=== PATIENT | male | born 1960 | race Two or more races ===

== ENCOUNTER → 2025-05-25 | Outpatient (CLI) | payer MEDICAID, SELFPAY ==
--- NOTE | 2025-05-25 09:33 | XR_ITS ---
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
== END | disposition home or self-care (01) ==
DX: M25.562 Pain in left knee (principal); M25.861 Other specified joint disorders, right knee; M17.11 Unilateral primary osteoarthritis, right knee
CPT/HCPCS: 73562

== ENCOUNTER → 2025-07-09 | Outpatient (CLI) | payer MEDICAID, SELFPAY ==
--- NOTE | 2025-07-09 14:30 | XR_ITS ---
Examination: Abdomen sonogram, Limited Date and time of exam: July 09, 2025, 1437 hours INDICATIONS: Umbilical hernia and pain 8 months Technique: Real-time grace scale transabdominal sonographic images of the upper abdomen obtained. Findings: Umbilical hernia 2.3 x 2.1 cm with possible edema IMPRESSION: Umbilical hernia 2.3 x 2.1 cm with possible edema which may represent incarcerated fat, consider CT scan abdomen without contrast follow-up
== END | disposition home or self-care (01) ==
DX: K42.9 Umbilical hernia without obstruction or gangrene (principal)
CPT/HCPCS: 76705

== ENCOUNTER 2025-09-28 09:15 | Day surgery (SDC) | payer MEDICAID, SELFPAY ==
--- NOTE | 2025-09-27 07:00 | EKG_ITS ---
[facility] Test Date: 2025-09-27 Pat Name: LISA CHANEY Department: Room: - Gender: Male Adult Care Manager: ELIUD : 1960 Requested By: Lul Plaza Order Number: [id number] Reading MD: Lul Plaza Measurements Intervals [place] Rate: 64 P: 44 TX: 190 QRS: 69 QRSD: 85 T: 58 QT: 363 QTc: 377 Interpretive Statements SINUS RHYTHM No previous ECG available for comparison /store/S0/[id number]/[id number].pdf
[2025-09-27 09:56] VITALS: BMI 36.5
[2025-09-27 11:42] LABS: Basophils # (Auto) 0.0 Thou/mm3 (0.0-0.2); Basophils % (Auto) 1 % (0-2.5); Eosinophils # (Auto) 0.2 Thou/mm3 (0.0-0.5); Eosinophils % (Auto) 3 % (0-10); Hematocrit 40.5 % (41.0-53.0); Hemoglobin 13.9 g/dL (13.5-16.0); Immature Granulocytes Auto 0.02 Thou/mm3 (0.00-0.00); Lymphocytes # (Auto) 1.2 Thou/mm3 (1.0-4.8); Lymphocytes % (Auto) 20 % (10-50); Mean Corpuscular HGB Conc 34.3 g/dl (31.0-37.0); Mean Corpuscular Hemoglobin 28.0 pg (25.0-35.0); Mean Corpuscular Volume 82 fL (80-100); Monocytes # (Auto) 0.6 Thou/mm3 (0.0-0.8); Monocytes % (Auto) 9 % (0-12); Neutrophils # (Auto) 4.0 Thou/mm3 (1.8-7.7); Neutrophils % (Auto) 66 % (37-80); Nucleated Red Blood Cell # 0.00 Thou/mm3 (0.00-0.00); Nucleated Red Blood Cell % 0 /100 WBC (0); Platelet Count 141 Thou/mm3 (140-440); RDW Standard Deviation 37.1 fL (35.1-43.9); Red Blood Count 4.96 Miln/mm3 (4.50-5.90); White Blood Count 6.1 Thou/mm3 (3.8-10.6)
[2025-09-27 11:50] LABS: Alanine Aminotransferase 11 U/L (10-49); Albumin, Serum 4.1 gm/dL (3.4-4.8); Albumin/Globulin Ratio 1.3 (1.2-2.2); Alkaline Phosphatase 94 U/L (46-116); Anion Gap 7 (7-16); Aspartate Amino Transferase 14 U/L (0-34); BUN/Creatinine Ratio 16 Ratio (12-20); Bilirubin,Total 0.8 mg/dL (0.3-1.2); Blood Urea Nitrogen 13 mg/dL (9-23); Calcium 8.8 mg/dL (8.3-10.6); Calcium (Corrected) 8.8 mg/dL (8.5-10.1); Carbon Dioxide 30.4 mMol/L (20.0-31.0); Chloride 106 mMol/L (98-107); Creatinine (Component) 0.8 mg/dL (0.6-1.3); Estimated Creatinine Clearance 104.7 mL/min (>60); Globulin 3.1 gm/dL (2.3-3.5); Glucose 100 mg/dL (74-106); Osmolality,Calculated 285 (275-295); Potassium 4.3 mMol/L (3.4-5.1); Sodium 143 mMol/L (136-145); Total Protein 7.2 gm/dL (5.7-8.2); eGFR > 60 See Note
[2025-09-27 11:55] LABS: INR 1.0 (0.9-1.3); Partial Thromboplastin Time 27.8 Seconds (22.0-36.0); Prothrombin Time 10.6 Seconds (9.0-12.2)
[2025-09-28] VITALS (8 sets, daily range): BP systolic 123–149; BP diastolic 72–97; PULSE 75–98; RESP 14–20; TEMP 36.2–36.4; O2SAT 95–99; BMI 36.3
--- NOTE | 2025-09-28 12:36 | SUR.PHASEI ---
report to Paola GONZALEZ
--- NOTE | 2025-09-28 12:36 | SUR.PHASEI ---
pt arrived to PACU via gurney with oral airway and nasal airway present, oral airway was removed upon arrival, breathing unlabored, dressing to abdomen clean, dry, and intact, report from Fredy GONZALEZ and Dr Plaza.
--- NOTE | 2025-09-28 12:56 | ESOP_ITS ---
Date of Procedure 09/28/25 Pre Op Diagnosis Symptomatic umbilical hernia Post Op Diagnosis Same Procedure Repair of the umbilical hernia with 1.7 inch Ventralex mesh Findings Patient is found to have a round defect measuring about 1.5 cm in diameter containing preperitoneal fat Procedure Description Of the patient was brought to the operating room due to clearances given. Abdomen was prepped with ChloraPrep solution and draped in a sterile manner. Timeout was performed. Then I made a curved incision below the umbilicus on the skin edges were retracted. The hernia was easily seen as a defect through which preperitoneal fat was coming through. I defined the edges of the hernia which was round. Then I released some of the adhesions of preperitoneal fat to the undersurface of the abdominal fascia. A right angle clamp was used to clear this and then I placed 1.7 inch Ventralex mesh inside the defect and used 2-0 Prolene to attach the Marlex straps to on each side. Then I placed also sutures on the opposite side of Marlex to anchor the mesh to the abdominal wall firmly without any defect. Then the subcutaneous tissue was closed with 3-0 chromic on the back of the umbilical skin was attached to the fascia with 1 stitch of 2-0 Prolene. Skin was closed with 4-0 Monocryl subcuticular stitch after injecting local anesthesia with 1% Marcaine plain. Patient tolerated procedure well. Anesthesia GETA Implants 1.[address] mesh Pathology / specimen None Estimated Blood Loss 10 Surgeon Perry Bermudez MD Surgical Staff Operation Date: 09/28/25 11:45 Case Staff Anesthesiologist: Lul Plaza RNmailroom manager: Elana العلي
--- NOTE | 2025-09-28 13:40 | SUR.PHASEII ---
1340: Pt. AAOx4, vitals stable, breathing unlabored, no complaint of pain or nausea, dressing to ABD CDI, no active bleed noted, pt. tolerated sips of water well, pt. ambulated to wheelchair with steady gait and no assist, no complications. Gave discharge instructions to the pt. and his ride using a master plumber, both verbalized understanding and had no further questions. Pt. left with all personal belongings.
== END 2025-09-28 13:40 | disposition home or self-care (01) ==
PROVIDERS: Referring Provider Surgery; Visit Provider Surgery
PROC: (CPT 49591; principal; 2025-09-28 11:30)
DX: K42.9 Umbilical hernia without obstruction or gangrene (principal); Z01.810 Encounter for preprocedural cardiovascular examination
CPT/HCPCS: 49591; 36415; 80053; 85025; 85610; 85730; 93005; A4649; C1781; J0131; J1100; J2704; J2765; J3010; J3490